=== PATIENT | male | born 2000 | race Caucasian/White ===

== ENCOUNTER 2022-10-30 12:40 | Emergency (ER) | payer OTHER, MEDICAID, SELFPAY ==
[2022-10-30 12:41] VITALS: BP 146/91; PULSE 80; RESP 18; TEMP 35.9; O2SAT 100; BMI 27.1
--- NOTE | 2022-10-30 12:57 | EDS_ITS ---
HPI HPI - Psych History of Present Illness Chief Complaint: Suicidal Narrative Narrative: 22-year-old male past medical history of depression and anxiety, takes sertraline and buspirone, but has not been taking his buspirone, presents with suicidal ideation. He states that it was recommended by his correctional officer sergeant that he be evaluated for suicidality as he had an overdose on fentanyl on Friday, approximately 5 days ago. He was snorting fentanyl and had an accidental overdose, and he mentioned that he wanted to and was depressed. He had no plan of suicide but stated that he did not care if he lived or . His correctional officer sergeant called his parents and they present him for psych eval. He states that he has fluctuating appetite, has not been sleeping well because he is worried about probation. Currently, he denies any suicidal ideation but does state that he is depressed. [facility] Medical History Anxiety Depression PTSD (post-traumatic stress disorder) Home Medications buspirone 10 mg tablet 5 mg PO BID 10/30/22 [History Last Taken Unknown] olanzapine 15 mg tablet mg PO DAILY 10/30/22 [History Last Taken Unknown] sertraline 100 mg tablet mg PO DAILY 10/30/22 [History Last Taken Unknown] Allergy/AdvReac Type Severity Reaction Status Date / Time No Known Allergies Allergy Verified 10/30/22 12:44 Social History Smoking Status: Current every day smoker tobacco type: cigarettes ROS ROS ED ROS Narrative Constitutional: No fever, no chills. HEENT: No sore throat. No neck pain. No loss of vision. No rhinorrhea. Cardiovascular: No chest pain. No palpitations. No pedal edema. Respiratory: No cough, no shortness of breath. Abdominal: No abdominal pain. No nausea. No vomiting. Genitourinary: No dysuria. No hematuria. Musculoskeletal: No myalgias. No arthralgias. Neurologic: No headaches. No dizziness. No lightheadedness. Skin: No rash. No change in color. Psychiatric: Positive depression. No anxiety. Positive suicidal thoughts. EXAM Physical Exam Narrative Exam Narrative: Afebrile. Vital signs noted. HEENT: Normocephalic. Atraumatic. PERRL, EOMI. Neck soft and supple. No point tenderness or step off. Cardiovascular: Regular rate and rhythm. No murmurs, rubs, or gallops appreciated. Respiratory: No tachypnea. Lungs clear to auscultation bilaterally. Gastrointestinal: Abdomen soft, nontender, with normoactive bowel sounds. No rebound or guarding. Neurological: Awake. Alert. Nonfocal, nonlateralizing. Skin: No rash. Normal color. No pallor. Musculoskeletal: No pedal edema. Full range of motion extremities. Psychiatric: Flat to depressed affect. Cooperative. States suicidal ideation comes and goes. Const Vital Signs: 10/30/22 12:41 Temperature 96.6 F L Temperature Source Temporal Pulse Rate 80 Respiratory Rate 18 Blood Pressure 146/91 H Blood Pressure Mean 109 Pulse Ox 100 Oxygen Delivery Method Room Air MDM MDM MDM Narrative Medical decision making narrative: Medical clearance labs were obtained. Patient will be discussed with mental health for evaluation of his suicidality. I reviewed his laboratory work, grossly unremarkable with a normal hemoglobin of 13.6, CMP is grossly unremarkable except for AST slightly elevated at 52 which I think is nonspecific, ethyl alcohol is negative, urine for drugs of abuse is pending, however I do feel that he is medically cleared for evaluation. Patient was seen and evaluated by social work/case management. Patient is not actively suicidal. He is able to contract for safety without ambivalence. He has follow-up with his correctional officer sergeant who sent him in today, and he is to follow-up with her this afternoon. Additionally, he has a counselor at [facility]. He will restart his buspirone and continue his sertraline. His parents are reportedly agreeable to the plan as well. At this point in time he will be discharged to follow-up closely. Social work will check on him tomorrow. Return instructions to the emergency department were reviewed. Disposition is discharged home in stable condition. History & Record Review Discussion w/independent historian: Patient and Family Additional record(s) reviewed:: No prior records Lab Data Attestation: I reviewed the patient's lab results. Labs: Laboratory Results - last 24 hr 10/30/22 13:15 WBC 8.2 RBC 4.13 L Hgb 13.6 Hct 40.4 MCV 97.8 H MCH 32.9 H MCHC 33.7 RDW Std Deviation 42.8 RDW Coeff of Ying 12.0 Plt Count 232 MPV 9.8 Immature Gran % (Auto) 0.200 Neut % (Auto) 61.6 Lymph % (Auto) 19.0 Robeson % (Auto) 13.4 H Eos % (Auto) 5.4 H Baso % (Auto) 0.4 Absolute Neuts (auto) 5.0 Absolute Lymphs (auto) 1.56 Nucleated RBC % 0 Sodium 138 Potassium 3.2 L Chloride 102 Carbon Dioxide 32.0 Anion Gap 4 L BUN 4 L Creatinine 0.69 L Estim Creat Clear Calc 184.32 Est GFR (MDRD) Af Amer 183 Est GFR (MDRD) Non-Af 151 BUN/Creatinine Ratio 5.8 L Glucose 89 Calcium 8.7 Total Bilirubin 0.50 AST 52 H ALT 35 Alkaline Phosphatase 58 Total Protein 7.3 Albumin 3.9 Globulin 3.4 Albumin/Globulin Ratio 1.1 Ethyl Alcohol < 3.0 Management Discussion w/another healthcare provider: plant maintenance worker/Case management Discharge Plan Triage Chief Complaint: Suicidal Other Complaint: Mental Health ED Provider: Glenn Clayton Dx/Rx/DC Orders Clinical Impression: Suicidal thoughts, Depression Instructions: Suicide Recognize Own Warnings, ED Depression, ED Drug Abuse Prescriptions: No Action sertraline 100 mg tablet PO DAILY olanzapine 15 mg tablet PO DAILY buspirone 10 mg tablet 5 mg PO BID Primary Care Provider: Care Physician,No Primary Referrals: Mónica Jay MD [Non-Staff] - Activity Restrictions/Additional Instructions: Follow-up with your correctional officer sergeant, your counselor at [facility], and return with any increasing thoughts of suicide according to your safety plan. Disposition Disposition: Home, Self Care
[2022-10-30 13:26] LABS: Absolute Lymphocyte Count 1.56 X10^3/uL (0.83-4.51); Basophil# 0.03 X10^3/uL; Basophil% 0.4 % (0-1); Eosinophil# 0.44 X10^3/uL; Eosinophils% 5.4 % (0-5); Hematocrit 40.4 % (40-54); Hemoglobin 13.6 g/dL (13.0-16.5); Lymphocyte # 1.56 X10^3/ul (0.83-4.51); Mean Corp Hgb Conc 33.7 g/dL (32-36); Mean Corpuscular Hgb 32.9 pg (27.0-32.0); Mean Corpuscular Volume 97.8 fL (80-94); Mean Platelet Vol. 9.8 fl (6.2-12.0); Monocyte% 13.4 % (0-10); NRBC Flagged by Analyzer 0 % (0-5); Neutrophil # 5.04 X10^3/uL (2.7-7.7); Neutrophil % 61.6 % (47-70); Platelet Count 232 K/mm3 (150-450); RBC Distribution Width SD 42.8 fl (35.1-43.9); Red Blood Count 4.13 M/mm3 (4.6-6.2); White Blood Count 8.2 K/mm3 (4.4-11.0)
[2022-10-30 13:43] LABS: ALB/GLOB Ratio 1.1 RATIO (0.9-2.4); AST(SGOT) 52 U/L (15-37); Alanine Aminotransfer ALT/SGPT 35 U/L (16-61); Albumin, Serum 3.9 g/dL (3.2-5.0); Alkaline Phosphatase 58 U/L (45-117); Anion Gap 4 (5-15); BUN 4 mg/dL (7-18); BUN/Creat Ratio 5.8 RATIO (10-20); Calcium,Total 8.7 mg/dL (8.5-10.1); Chloride 102 mmol/L (98-107); Creatinine, Serum 0.69 mg/dL (0.70-1.30); EST Glomerular Filtration Rate 151 mL/min (>60); Est Glom Filt Rate - Afr Amer 183 mL/min (>60); Estimated Creatinine Clearance 184.32 ml/min; Globulin 3.4 g/dL (2.2-4.2); Glucose 89 mg/dL (74-106); Potassium 3.2 mmol/L (3.5-5.1); Protein, Total 7.3 g/dL (6.4-8.2); Sodium Level 138 mmol/L (136-145)
[2022-10-30 13:54] LABS: Alcohol, Blood (Medical)-Serum < 3.0 mg/dL
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
--- NOTE | 2022-10-31 17:45 | CM.ED ---
Social Work SW made two attempts to contact patient to follow up regarding safety plan completed with patient 10/30/22, however, patient did not answer and his VM box is full. Bernadette Golden PRINT PROJECT MANAGER, [employer]
== END 2022-10-30 14:26 | disposition home or self-care (01) ==
PROVIDERS: Emergency Provider Emergency Medicine; Visit Provider Emergency Medicine
DX: R45.851 Suicidal ideations (principal); F32.A Depression, unspecified; F17.210 Nicotine dependence, cigarettes, uncomplicated
CPT/HCPCS: 80053; 82077; 85025; 99283